=== PATIENT | female | born 2000 | race Caucasian/White ===

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

== ENCOUNTER 2020-03-05 08:50 | Emergency (ER) | payer BC, OTHER, MEDICAID ==
[~2020-03-05] VITALS: Ht 157.5 cm; Wt 77.1 kg
[2020-03-05] MEDS ORDERED: PERCOCET 5-3251 EACH PO (08:59)
[2020-03-05] MEDS ORDERED: BACTRIM DS TAB1 EACH PO (09:03)
[2020-03-05] MEDS ORDERED: NORCO 5-325 TA1 EAC1 PO (09:03)
[2020-03-05 09:17] VITALS: BP 124/78
== END 2020-03-05 09:18 | disposition home or self-care (01) ==
LOC: M.ERS 08:50
DX: L05.91 Pilonidal cyst without abscess (principal); F17.210 Nicotine dependence, cigarettes, uncomplicated; Z98.890 Other specified postprocedural states